=== PATIENT | female | born 1990 | race Caucasian/White ===

== ENCOUNTER 2023-11-20 10:22 | Emergency (ER) | payer OTHER, SELFPAY ==
[2023-11-20 10:30] VITALS: BP 152/74; PULSE 107; RESP 16; TEMP 36.8; O2SAT 98
--- NOTE | 2023-11-20 11:05 | ED.EAR ---
HPI - Ear Problem General Chief complaint: Ear Stated complaint: Ears Time Seen by Provider: 11/20/23 10:50 Source: patient, RN notes reviewed and old records reviewed Mode of arrival: ambulatory Limitations: no limitations History of Present Illness HPI Narrative: 33 year old female [facility] with complaints of feeling like something is in her ears. Patient reports that she groomed her dog and thinks maybe she has dog hair down in her ears,she reports that she put an ear camera down in her ear and attached it to phone and thought she saw something in her ear.Patient reports that it feels like pressure in her ears. MD Complaint: other (ear feel like something in ear) Location: bilateral Duration: constant Treatment prior to arrival: other (used phone camera for her ear ) Related Data Home Medications Medication Instructions Recorded Confirmed bupropion HCl 300 mg 24 hr tablet, mg PO 11/20/23 extended release mirtazapine 45 mg tablet mg 11/20/23 rimegepant 75 mg disintegrating mg 11/20/23 tablet (Nurtec ODT) Allergies Allergy/AdvReac Type Severity Reaction Status Date / Time clindamycin Allergy Hives Verified 11/20/23 10:52 Penicillins Allergy Hives Verified 11/20/23 10:51 Review of Systems Review of Systems: CONSTITUTIONAL: Denies malaise, chills, sweats, or fever. EYES: Denies visual changes, redness, or discharge. ENT: Reports rhinorrhea, congestion,no sinus pain,reports otalgia and no sore throat. CARDIOVASCULAR: Denies chest pain, palpitations, or edema. RESPIRATORY: Reports no cough.? Denies dyspnea. GASTROINTESTINAL: Denies abdominal pain, nausea, vomiting, diarrhea SKIN: Denies rash or itching. MUSCULOSKELETAL: Denies myalgia. NEUROLOGIC: Denies headache. All systems reviewed & are unremarkable except as noted in HPI and below PMFSH Past Medical History Medical History (Updated 11/23/23 @ 09:13 by Jessi Araya NP) Anxiety with depression Migraine Restless leg syndrome Social History Social History (Updated 11/23/23 @ 09:12 by Jessi Araya NP) Gender identity (if verbalized by the patient): Female Comments At time of signature, agree with nursing past medical, surgical, social and family history. There is no relevant family history pertinent to the presenting complaint Exam Narrative: GENERAL: Well-appearing, well-nourished, and in no acute distress. HEAD: Normocephalic EYES: PERRLA, conjunctivae clear ENT: Nares clear, turbinates edematous and erythematous, clear discharge. Mucous membranes moist. Some fluid noted bilateral TM's.TM pearly alberto with dull light reflex bilaterally; no tragal tenderness, no foreign body noted. Oropharynx erythematous without lesions. Tonsils not enlarged and without exudate, no drooling, no hoarseness, no trismus, uvula midline. NECK: Supple. No lymphadenopathy CHEST: Clear to auscultation, breath sounds equal. No wheezing, rhonchi, rales, or stridor. No respiratory distress, speaks in full sentences. no cough noted SAO2 98% on room air HEART: Regular rate and rhythm. No murmur heard. SKIN: Warm, dry, no rash. NEURO: Alert and oriented x3. PSYCH: Normal mood and affect Course Course Emergency Course: Patient is aware of diagnosis, understands and agrees to treatment plan.? Anticipatory guidance given.? Patient agrees to follow-up as directed and is aware of reasons to seek care at the emergency department. Portions of this record may have been created with voice recognition software Level of Care: Express Care Visit Vital Signs Vital signs: Vital Signs Temperature 36.8 C 11/20/23 10:30 Pulse Rate 107 H 11/20/23 10:30 Respiratory Rate 16 11/20/23 10:30 Blood Pressure 152/74 H 11/20/23 10:30 Pulse Oximetry 98 11/20/23 10:30 Oxygen Delivery Room Air 11/20/23 10:30 Temperature 36.8 C 11/20/23 10:30 Pulse Rate 107 H 11/20/23 10:30 Respiratory Rate 16
== END 2023-11-20 11:19 | disposition home or self-care (01) ==
PROVIDERS: Emergency Provider Registered Nurse; PCP Internal Medicine
DX: H69.93 Unspecified Eustachian tube disorder, bilateral (principal); G25.81 Restless legs syndrome
CPT/HCPCS: 99213; G0463